=== PATIENT | female | born 1945 | race Caucasian/White ===

== ENCOUNTER 2022-05-26 17:06 | Outpatient (REF) | payer MEDICARE, BC, SELFPAY ==
[2022-05-26 20:52] LABS: Abs Immature Grans 0.03 10^3/uL (0.0-0.06); HCT 45.9 % (36.0-46.0); HGB 15.4 g/dL (11.2-15.7); MCH 30.6 pg (27.0-33.0); MCHC 33.6 % (32.0-36.0); MCV 91 fL (80-95); MPV 11.8 fL (8.0-11.0); Platelet Count 213 10^3/uL (130-400); RBC 5.04 10^6/uL (3.93-5.22); RDW 13.1 % (11.7-14.6); RDW-SD 43.5 fL
[2022-05-26 20:58] LABS: ESR 9 mm/hr (0-30)
[2022-05-26 21:06] LABS: ALT 35 U/L (14-59); AST 25 U/L (15-37); Albumin 4.1 g/dL (3.4-5.0); Alkaline Phosphatase 76 U/L (46-116); Anion Gap 7.6 mmol/L (3-11); BUN 21 mg/dL (7-18); Bilirubin, Total 0.4 mg/dL (0.2-1.0); C-Reactive Protein 0.19 mg/dL (0.0-0.3); CO2 29.4 mmol/L (21.0-32.0); CREATININE 0.5 mg/dL (0.55-1.02); Calcium 9.9 mg/dL (8.5-10.1); Chloride 104 mmol/L (98-107); Glucose 134 mg/dL (74-106); Potassium 4.3 mmol/L (3.5-5.1); Sodium 141 mmol/L (136-145); Total Protein 7.4 g/dL (6.4-8.2)
[2022-05-26 21:11] LABS: Absolute Neutrophil Count 4.22 10^3/uL (1.2-6.7); Bands % 0
[2022-05-26 21:12] LABS: Absolute Eosinophil Count 0.31 10^3/uL (0.0-0.7); Absolute Lymphocyte Count 4.74 10^3/uL (1.2-3.4); Absolute Monocyte Count 1.03 10^3/uL (0.1-0.8); Atypical Lymphocytes % 6; Diff Comment Manual Differential; RBC Morphology Normal
== END 2022-05-26 17:07 | disposition home or self-care (01) ==
LOC: LBN 17:06
PROVIDERS: Visit Provider Nurse Practitioner Family
DX: R10.30 Lower abdominal pain, unspecified (principal); R19.7 Diarrhea, unspecified
CPT/HCPCS: 80053; 85652; 85025; 86140

== ENCOUNTER 2022-05-29 14:31 | Outpatient (REF) | payer MEDICARE, BC, SELFPAY ==
[2022-05-29 16:31] LABS: C Diff PCR Negative (Negative)
[2022-05-30 13:57] LABS: Campylobacter PCR Negative (Negative); Salmonella PCR Negative (Negative); Shiga Toxin PCR Negative (Negative); Shigella/Enteroinvasive Ecoli Negative (Negative)
== END 2022-05-29 14:32 | disposition home or self-care (01) ==
LOC: LBN 14:31
PROVIDERS: Visit Provider Nurse Practitioner Family
DX: R19.7 Diarrhea, unspecified (principal); R10.30 Lower abdominal pain, unspecified
CPT/HCPCS: 87493; 87505; 83630